=== PATIENT | male | born 1970 | race Caucasian/White ===

== ENCOUNTER 2020-08-29 09:09 | Emergency (ER) | payer OTHER ==
[2020-08-29 09:19] VITALS: BP 163/94; PULSE 78; RESP 18; TEMP 98.4
[2020-08-29] MEDS ORDERED: DIPH,PERTUS(ACELL)TETVAC-LF 0.5 ML VIAL IM ONE (10:10)
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
== END 2020-08-29 10:33 | disposition home or self-care (01) ==
LOC: EC 09:09
DX: T23.202A Burn of second degree of left hand, unspecified site, initial encounter (principal); T22.10XA Burn of first degree of shoulder and upper limb, except wrist and hand, unspecified site, initial encounter; T31.0 Burns involving less than 10% of body surface; Z23 Encounter for immunization; X10.2XXA Contact with fats and cooking oils, initial encounter; Y93.G3 Activity, cooking and baking; Y92.000 Kitchen of unspecified non-institutional (private) residence as the place of occurrence of the external cause
CPT/HCPCS: 90471; 90715; 99283